=== PATIENT | male | born 1995 | race Caucasian/White ===

== ENCOUNTER 2023-11-18 13:29 | Emergency (ER) | payer OTHER ==
[~2023-11-18] VITALS: Ht 170.2 cm; Wt 90.9 kg
[2023-11-18 13:31] VITALS: BP 129/74; TEMP 98.6; O2SAT 96
== END 2023-11-18 16:58 | disposition home or self-care (01) ==
LOC: M ED 13:29
DX: S99.912A Unspecified injury of left ankle, initial encounter (principal); Y92.9 Unspecified place or not applicable; Y93.9 Activity, unspecified; Y99.0 Civilian activity done for income or pay